=== PATIENT | male | born 1995 | race Caucasian/White ===

== ENCOUNTER 2017-03-05 14:20 | Emergency (ER) | payer OTHER ==
[~2017-03-05] VITALS: Ht 185.4 cm; Wt 69.1 kg
[~2017-03-05 14:20] MED LIST: XOPENEX; ZOFRAN ODT4 MG PO
[2017-03-05] MEDS ORDERED: NAPROSYN500 MG PO (15:46)
[2017-03-05] MEDS ORDERED: KEFLEX500 MG PO (15:46)
[2017-03-05 16:05] VITALS: BP 120/77
== END 2017-03-05 16:08 | disposition home or self-care (01) ==
LOC: EME 14:20
PROC: 2W3DX1Z Immobilization of Left Lower Arm using Splint (ICD-10-PCS; principal; 2017-03-05)
DX: S62.002A Unspecified fracture of navicular [scaphoid] bone of left wrist, initial encounter for closed fracture (principal); S61.501A Unspecified open wound of right wrist, initial encounter; W11.XXXA Fall on and from ladder, initial encounter; Y93.89 Activity, other specified
CPT/HCPCS: 73110; 99281; 99284

== ENCOUNTER 2018-04-21 20:54 | Emergency (ER) | payer OTHER ==
[~2018-04-21] VITALS: Ht 182.9 cm; Wt 70.8 kg
[~2018-04-21 20:54] MED LIST changes: +KEFLEX500 MG PO; +NAPROSYN500 MG PO
[2018-04-21 21:33] LABS: HEMATOCRIT 46.7 % (38.0-50.0); HEMOGLOBIN 15.6 G/DL (12.5-16.6); MCH 30.5 PG (29.0-34.0); MCHC 33.4 G/DL (30.0-36.0); MCV 91.4 FL (86-99); PLATELET COUNT 205 K/uL (156-360); RBC DIS.WIDTH-CV 12.6 % (11.8-14.6); RBC DIS.WIDTH-SD 42.5 % (39-53); RED BLOOD COUNT 5.11 M/uL (4.00-5.50)
[2018-04-21 21:44] LABS: CHLORIDE 105 mEq/L (99-109); POTASSIUM 4.4 mEq/L (3.7-5.4); SODIUM 140 mEq/L (136-147)
[2018-04-21 21:46] LABS: GLUCOSE 104 mg/dL (70-99)
[2018-04-21 21:49] LABS: CREATININE 1.2 mg/dL (0.6-1.3); GFR ESTIMATE (CALCULATED) > 59 mL/min/ (58.99-99999)
[2018-04-21 21:50] LABS: UREA NITROGEN (BUN) 12 mg/dL (9-23)
[2018-04-21 21:56] LABS: TROP-I INTERPRETATION NEGATIVE; TROPONIN-I < 0.01 ng/mL (0.0-0.30)
[2018-04-21 22:22] LABS: D-DIMER ELISA < 150.00 ng/mLDDU (<230)
[2018-04-21 23:37] VITALS: BP 134/81
== END 2018-04-22 00:01 | disposition home or self-care (01) ==
LOC: EME 20:54
PROVIDERS: Physician Assistant
DX: M94.0 Chondrocostal junction syndrome [Tietze] (principal); J45.909 Unspecified asthma, uncomplicated; R01.1 Cardiac murmur, unspecified; Z87.891 Personal history of nicotine dependence
CPT/HCPCS: 71046; 80048; 84484; 85027; 85379; 93005; 94640; 99281; 99284